=== PATIENT | female | born 1995 | race Caucasian/White ===

== ENCOUNTER 2017-05-08 18:21 | Emergency (ER) | payer SELFPAY ==
--- NOTE | 2017-05-08 18:41 | ED.PDOC ---
History of Present Illness - General Chief Complaint: Abdominal Pain Stated Complaint: abdominal pain Time Seen by Provider: 05/08/17 18:40 Information Source: patient, RN notes reviewed, family Exam Limitations: no limitations - History of Present Illness Initial Comments: Rachelle Biggs 22 y/o female stated that for the last one week she had been having intermittent lower abdominal cramps mostly LLQ>RLQ denies diarrhea , dysuria but felt nauseated wanting to throw up.Denies vaginal discharge .Had menses 04/25-10/2016.Denies history of STI .Lately the pain getting longer nad almost constant the whole day but able to go to sleep. Abdominal Pain Onset Location: other - lower abdomen Pain Radiation: no radiation Quality: cramping, steady Timing/Duration: getting worse Improving Factors: nothing Worsening Factors: nothing Associated Symptoms: nausea/vomiting Review of Systems - Review of Systems Constitutional: States: no symptoms reported EENTM: States: no symptoms reported Respiratory: States: no symptoms reported Cardiology: States: no symptoms reported Gastrointestinal/Abdominal: States: see HPI Genitourinary: States: no symptoms reported Past Medical History (General) - Patient Medical History Hx Asthma: Yes Hx Cardiac Disorders: No Hx Diabetes: No Surgical History: no surgical history - Vaccination History Hx Influenza Vaccination: No Hx Pneumococcal Vaccination: No - Social History Hx Tobacco Use: Yes Hx Chewing Tobacco Use: No Hx Alcohol Use: Yes Hx Physical Abuse: No Hx Emotional Abuse: No Hx Suspected Abuse: No - Activities of Daily Living Patient Lives Alone: No - family - Female History Patient is a Female of Child Bearing Age (10 -59 yrs old): Yes - nulligravida Hx Last Menstrual Period: 04/27/17 Patient : No Family Medical History - Family History Grandparents Family History: Unknown Living Status: Unknown Hx Family Hypertension: Yes - parents Hx Cardiac Disease: Yes - dad Hx Family Diabetes: Yes - dad Physical Exam - Physical Exam General Appearance: Alert, No apparent distress Eyes, Ears, Nose, Throat Exam: normal ENT inspection, pharynx normal Neck: non-tender, supple Respiratory: chest non-tender, lungs clear Cardiovascular/Chest: normal peripheral pulses, regular rate, rhythm, no murmur Peripheral Pulses: No deficit Gastrointestinal/Abdominal: normal bowel sounds, non tender, soft, no organomegaly Pelvic Exam: normal external exam, normal adnexa, no cerv. motion tender - felt discomfort, discharge - whitish, other - no lesions vaginal mucosa Back Exam: no CVA tenderness Extremity: non-tender, no pedal edema, no calf tenderness Neurologic: alert, normal mood/affect, oriented x 3 Skin Exam: normal color, warm/dry Lymphatic: no adenopathy Progress - Progress Progress: 05/08/17 20:44 Vital Signs - 8 hr 05/08/17 05/08/17 05/08/17 18:24 19:22 20:06 Temperature 99.4 F 99 F Pulse Rate [ 80 79 85 PULSE OX] Respiratory 18 18 18 Rate Blood Pressure 138/91 122/75 124/72 [LEFT BRACHIAL] O2 Sat by Pulse 97 96 96 Oximetry Laboratory Tests 05/08/17 05/08/17 05/08/17 19:15 19:15 19:15 WBC 9.1 RBC 5.19 Hgb 16.5 H Hct 47.9 H MCV 92.2 MCH 31.7 H MCHC 34.5 RDW 12.8 Plt Count 273 MPV 9.6 Absolute Neuts (auto) 4.60 Absolute Lymphs (auto) 3.10 Absolute Monos (auto) 1.00 H Absolute Eos (auto) 0.30 Absolute Basos (auto) 0.10 Neutrophils % 50.1 Lymphocytes % 34.2 Monocytes % 11.0 H Eosinophils % 3.5 Basophils % 1.2 Sodium 136 Potassium 3.5 L Chloride 100 L Carbon Dioxide 28 Anion Gap 11.5 L BUN 13 Creatinine 0.62 BUN/Creatinine Ratio 21.0 H Random Glucose 81 Serum Osmolality 271.1 L Calcium 9.7 Total Bilirubin 1.1 H AST 22 ALT 30 Alkaline Phosphatase 66 Serum Total Protein 8.6 H Albumin 4.8 Globulin 3.8 H Albumin/Globulin Ratio 1.3 Lipase 34 Urine Color Urine Appearance Urine pH Ur Specific [place] Urine Protein Urine Glucose (UA) Urine Ketones Urine Blood Urine Nitrite Urine Bilirubin Urine Urobilinogen Ur Leukocyte Esterase Urine RBC Urine WBC Ur Epithelial Cells Urine Bacteria Urine HCG, Qual Negative 05/08/17 19:15 WBC RBC Hgb Hct MCV MCH MCHC RDW Plt Count MPV Absolute Neuts (auto) Absolute Lymphs (auto) Absolute Monos (auto) Absolute Eos (auto) Absolute Basos (auto) Neutrophils % Lymphocytes % Monocytes % Eosinophils % Basophils % Sodium Potassium Chloride Carbon Dioxide Anion Gap BUN Creatinine BUN/Creatinine Ratio Random Glucose Serum Osmolality Calcium Total Bilirubin AST ALT Alkaline Phosphatase Serum Total Protein Albumin Globulin Albumin/Globulin Ratio Lipase Urine Color Yellow Urine Appearance Clear Urine pH 6.0 Ur Specific [place] 1.010 Urine Protein Negative Urine Glucose (UA) Negative Urine Ketones Negative Urine Blood Negative Urine Nitrite Negative Urine Bilirubin Negative Urine Urobilinogen 0.2 Ur Leukocyte Esterase Negative Urine RBC 0 Urine WBC 0-1 Ur Epithelial Cells 0-1 Urine Bacteria 0 Urine HCG, Qual Departure - Departure Clinical Impression: Pelvic pain, Bacterial vaginosis Time of Disposition: 20:46 Disposition: Discharge to Home or Self Care Condition: Fair Instructions: DI for Pelvic Pain Prescriptions: Promethazine HCl 25 mg PO Q6HR PRN #10 tab PRN Reason: Nausea Metronidazole 500 mg PO BID #10 tab Home Medications: Ambulatory Orders Metronidazole 500 mg PO BID #10 tab 05/08/17 Promethazine HCl 25 mg PO Q6HR PRN #10 tab 05/08/17 Additional Instructions: NEED TO SIGN UP WITH PRIMARY MD [id number];
[2017-05-08] MEDS ORDERED: LACTATED RINGERS 1,000 ML IVS ONE (18:42)
[2017-05-08 19:30] VITALS: O2SAT 96
[2017-05-08] MEDS ORDERED: AZITHROMYCIN 250 MG TAB PO ONE (20:30)
[2017-05-08] MEDS ORDERED: METRONIDAZOLE 500 MG PO ONE (20:31)
[2017-05-08] MEDS ORDERED: PROMETHAZINE HCL INJ 25 MG/ML VIAL IM ONE (20:33)
[2017-05-08] MEDS ORDERED: LIDOCAINE 1% 10 ML VIAL INJ ONE (20:41)
[2017-05-08] MEDS ORDERED: SODIUM CHLORIDE 0.9% 50ML 50 ML ONE (20:42)
[2017-05-08] MEDS ORDERED: cefTRIAXone SODIUM 250 MG in SODIUM CHL 0.9% 50ML MIN-BAG+ 50 ML IVPB ONE (20:44)
[2017-05-08] MEDS ORDERED: traMADol HCL 50 MG (ER DISP) # 6 TABS PO ONE (20:52)
[2017-05-08 21:16] VITALS: BP 123/79; TEMP 98.7
== END 2017-05-08 21:15 | disposition home or self-care (01) ==
LOC: ER 18:21
DX: N76.0 Acute vaginitis (principal); Z87.891 Personal history of nicotine dependence
CPT/HCPCS: 36415; 80053; 81001; 81025; 83690; 85025; 87210; A4216; J0696; J2550; J7120; Q0144